=== PATIENT | male | born 1940 | race Caucasian/White ===

== ENCOUNTER 2019-06-26 23:26 | Observation (INO) | payer MEDICARE, OTHER ==
[~2019-06-26] VITALS: Ht 177.8 cm; Wt 76.1 kg
[2019-06-26] MEDS ORDERED: IV RINGERS SOLUTION,LACTATED 1,000 ML IV SCH (23:32)
--- NOTE | 2019-06-26 23:32 | PHYS DOC ---
Past History Past Medical History: Arthritis, Other Past Surgical History: Lumbar Laminectomy, Other Past Surgical History Back- Lumbar Sacral Adult General Chief Complaint Chief Complaint: ".. I ve fallen twice to day..hit my head both times.. my back pain is worse than usually... I just got released from [facility] 3 days ago...".." Now I am having chest pain... :" HPI HPI Patient is a 79 year old male who presents with above hx and complaints of falling. Pt has struck head on fall x 2 today. lst fall when he was closing up and got weak and hit back of his head. The second fall occurred when he decided to go for a drive in his Jeep,. He realized he did not have a rope to pull up his step stool. Pt uses a step stool to get into his Jeep. .. When he tried to get out of Jeep, he had increased weakness which caused him to fall and strike the Lt side of his forehead on the concrete. Pt. states falls were because of severe weakness. Pt. stated he had no report loss of consc iousness.with either fall. Did have some momentary dizzy feeling after striking his head. Pt. does have abrasions contusion to posterior scalp and abrasions contusion to left side forehead. Patient states his tetanus is up-to-date. Recently discharged from [facility] and longterm. Was at rehabilitation facility because of generalized limb weakness. Patient normally follows at [facility]. Patient has history of chronic back pain from surgery when he was in [place]. Patient relates his low back pain seems worse today. No recent travel outside of [place] and [place] area . Pt. reports no specific ill contacts. No history immunosuppression. Did get flu vaccination this season. On arrival emergency room pt. complaining of central chest pain that is nonradiating. Pain is reproducible on palpation sternal area. . Patient does have a history of hypertension and coronary artery disease. Review of Systems Review of Systems Constitutional: Denies fever or chills [] Eyes: Denies change in visual acuity, redness, or eye pain [] HENT: Denies nasal congestion or sore throat [] Complaints of head injury x 2 today. Respiratory: Denies cough or shortness of breath [] Cardiovascular: No additional information not addressed in HPI [] GI: Denies abdominal pain, nausea, vomiting, bloody stools or diarrhea [] : Denies dysuria or hematuria [] Musculoskeletal:Complaints of chronic low back and sacral pain, recent exacerbation Integument: Denies rash or skin lesions [] Neurologic: Denies headache, focal weakness or sensory changes [] Endocrine: Denies polyuria or polydipsia [] All other systems were reviewed and found to be within normal limits, except as documented in this note. Family History Family History On chronic respiratory to presentation Current Medications Current Medications See nursing for home meds Allergies Allergies No known drug allergies Physical Exam Physical Exam Constitutional: Moderate acute distress, non-toxic appearance. [] HENT: Normocephalic, patient's hematoma to posterior scalp, abrasion and hematoma to left anterior scalp, bilateral external ears normal, scar oropharynx moist, no oral exudates, nose normal. [] Eyes: PERRLA, EOMI, conjunctiva normal, no discharge. [] Neck: Normal range of motion, no tenderness, supple, no stridor. [] Cardiovascular: Tachycardia Heart rate regular rhythm, no murmur []PMI to the left Lungs & Thorax: Bilateral breath sounds equal apex with scattered wheezes on auscultation []. Sterna tenderness on palpation of sternum. Abdomen: Bowel sounds normal, soft, no tenderness, no masses, no pulsatile masses. [] Skin: Warm, dry, no erythema, no rash. [] Does have other areas of contusion elbows and knees. Back: Number sacral tenderness, no CVA tenderness. [] Old surgery scar left lumbar sacral area Extremities: No tenderness, no cyanosis, no clubbing, ROM intact, no edema. []Arthritic changes. Lower leg weakness. Neurologic: Alert and oriented X 3, moves extremities on request, does appear to have distal sensory, no gross focal deficits noted. [] Psychologic: Affect anxious, judgement normal, mood normal. [] EKG EKG EKG sinus rhythm at 89 bpm. Does have a leftward axis changes. Findings of acute STEMI with contralateral changes. Radiology/Procedures Radiology/Procedures [][address] [address] IMAGING REPORT Signed PATIENT: TARA PAREDESACCOUNT: [id number] : 1940 LOCATION: ER AGE: 79 SEX: M EXAM STATUS: REG ER ORD. PHYSICIAN: SUSAN WISDOM MD REASON: BACK PAIN, FREQUENT FALLS PROCEDURE: CT LUMBAR SPINE WO CONTRAST INDICATION: Trauma with pain in the lumbar spine and pelvis COMPARISON: None. TECHNIQUE: Axial CT images obtained through the lumbar spine and pelvis. One or more of the following individualized dose reduction techniques were utilized for this examination: 1. Automated exposure control; 2. Adjustment of the mA and/or kV according to patient size; 3. Use of iterative reconstruction technique. FINDINGS: Lumbar spine: No evidence of dislocation. No definite acute fracture line. Degenerative changes throughout the lumbar spine with osteophyte formation at the vertebral body endplates as well as disc protrusions and facet hypertrophy with multilevel central canal and neural foraminal stenosis. There is also some lucency seen at the vertebral body endplates including L5, L4 and L3. Could be related to degenerative changes and Schmorl's node formation. Calcific atherosclerosis. Pelvis: Calcific atherosclerosis. Degenerative changes the bilateral hips with osteophyte formation. Fat-containing left inguinal hernia. Urinary bladder somewhat distended at time of exam. Fat-containing umbilical hernia. No definite acute fracture or dislocation. IMPRESSION: * Degenerative changes of the lumbar spine with multilevel central canal and neural foraminal stenosis without a definite acute fracture. * No definite pelvic fracture. Electronically signed by: Jina Ovalle MD (06/27/2019 1:17 AM) [id number] DICTATED AND SIGNED BY: JINA OVALLE MD DATE: 06/27/[address] [place] [id number] IMAGING REPORT Signed PATIENT: TARA PAREDESACCOUNT: [id number] : 1940 LOCATION: ER AGE: 79 SEX: M EXAM STATUS: REG ER ORD. PHYSICIAN: SUSAN WISDOM MD REASON: head injury, FREQUENT FALLS PROCEDURE: CT HEAD AND CERVICAL SPINE WO INDICATION: Status post fall COMPARISON: None. TECHNIQUE: Axial CT images obtained through the head and cervical spine. One or more of the following individualized dose reduction techniques were utilized for this examination: 1. Automated exposure control; 2. Adjustment of the mA and/or kV according to patient size; 3. Use of iterative reconstruction technique. FINDINGS: Head: No midline shift. Scattered foci of low density of the white matter. No evidence of hydrocephalus. No definite acute intracranial hemorrhage. Portions of right mastoid air cells are missing which could be postoperative or secondary to auto mastoidectomy changes. Cervical spine: Degenerative changes are identified with osteophyte formation at the vertebral body endplates as well as uncovertebral and facet hypertrophy with multilevel central canal and neural foraminal stenosis. Partial fusion changes at multiple levels at the facet joints. No definite acute fracture. IMPRESSION: * No acute intracranial hemorrhage. * Degenerative changes the cervical spine without acute fracture or dislocation. Electronically signed by: Jina Ovalle MD (06/27/2019 1:05 AM) [id number] DICTATED AND SIGNED BY: JINA OVALLE MD DATE: 06/27/19 0105 CC: SUSAN WISDOM MD; PCP,NO ~ Course & Med Decision Making Course & Med Decision Making Pertinent Labs and Imaging studies reviewed. (See chart for details) Patient admitted to with consult to cardiology. Heart score: 5 Impression: 1. Chest Pain 2. Falling 3. Leukocytosis 11.1 4. Elevated D-dimer 0.64 5. Elevated CK 378 6. Head Injury 7. Spinal Stenosis 8. Weakness [] Dragon Disclaimer Dragon Disclaimer This electronic medical record was generated, in whole or in part, using a voice recognition dictation system. Departure Departure: Disposition: 01 HOME/RESIDENCE PRIOR TO ADM Condition: STABLE Dragon Disclaimer This chart was dictated in whole or in part using Voice Recognition software in a busy, high-work load, and often noisy Emergency Department environment. It may contain unintended and wholly unrecognized errors or omissions. SUSAN WISDOM MD Jun 26, 2019 23:32
[2019-06-26] MEDS ORDERED: MORPHINE SULFATE 10 MG/ML SYRINGE. SQ ONE (23:45)
[2019-06-27] VITALS (8 sets, daily range): BP systolic 108–151; BP diastolic 71–84
[2019-06-27 00:26] LABS: CALCIUM 9.8 mg/dL (8.5-10.1); CREATININE 0.8 mg/dL (0.7-1.3); GFR 93.5; POTASSIUM 4.8 mmol/L (3.5-5.1)
[2019-06-27 00:29] LABS: BASO % 0 % (0-3); EOS # 0.1 x10^3/uL (0.0-0.7); EOS % 1 % (0-3); HEMATOCRIT 45.2 % (39.0-53.0); HEMOGLOBIN 15.3 g/dL (13.0-17.5); LYMPH # 1.5 x10^3/uL (1.0-4.8); LYMPH % 13 % (24-48); MEAN CORPUSCULAR HEMOGLOBIN 31 pg (25-35); MEAN CORPUSCULAR HGB CONC 34 g/dL (31-37); MEAN CORPUSCULAR VOLUME 93 fL (79-100); MONO # 0.6 x10^3/uL (0.0-1.1); MONO % 6 % (0-9); NEUT # 8.9 x10^3uL (1.8-7.7); NEUT % 80 % (31-73); PLATELET COUNT 258 x10^3/uL (140-400); RED BLOOD COUNT 4.88 x10^6/uL (4.30-5.70); RED CELL DISTRIBUTION WIDTH 12.8 % (11.5-14.5); WHITE BLOOD COUNT 11.1 x10^3/uL (4.0-11.0)
[2019-06-27 00:38] LABS: ALBUMIN 4.1 g/dL (3.4-5.0); DIRECT BILIRUBIN 0.2 mg/dL (0.0-0.2); TOTAL BILIRUBIN 0.5 mg/dL (0.2-1.0); TOTAL PROTEIN 7.5 g/dL (6.4-8.2)
[2019-06-27] MEDS ORDERED: ONDANSETRON PF 4 MG/2 ML VIAL. IVP PRN (01:00)
--- NOTE | 2019-06-27 01:08 | RAD ---
INDICATION: Status post fall COMPARISON: None. TECHNIQUE: Axial CT images obtained through the head and cervical spine. One or more of the following individualized dose reduction techniques were utilized for this examination: 1. Automated exposure control; 2. Adjustment of the mA and/or kV according to patient size; 3. Use of iterative reconstruction technique. FINDINGS: Head: No midline shift. Scattered foci of low density of the white matter. No evidence of hydrocephalus. No definite acute intracranial hemorrhage. Portions of right mastoid air cells are missing which could be postoperative or secondary to auto mastoidectomy changes. Cervical spine: Degenerative changes are identified with osteophyte formation at the vertebral body endplates as well as uncovertebral and facet hypertrophy with multilevel central canal and neural foraminal stenosis. Partial fusion changes at multiple levels at the facet joints. No definite acute fracture. IMPRESSION: * No acute intracranial hemorrhage. * Degenerative changes the cervical spine without acute fracture or dislocation. Electronically signed by: Dorian Sen MD (06/27/2019 1:05 AM) [id number]
[2019-06-27 01:14] LABS: CLARITY,URINE CLEAR; COLOR,URINE STRAW
[2019-06-27 01:15] LABS: AMORPHOUS SEDIMENT,UR PRESENT /HPF; BACTERIA,URINE 0 /HPF (0-FEW); BILIRUBIN,URINE NEG (NEG); GLUCOSE,URINE NEG (NEG); NITRITE,URINE NEG (NEG); RBC,URINE 0 /HPF (0-2); SQUAMOUS EPITHELIAL CELL,UR OCC /LPF; UROBILINOGEN,URINE 0.2 mg/dL (0.2 mg/dL); WBC,URINE 0 /HPF (0-4)
[2019-06-27 01:19] LABS: BARBITURATES NEG (NEG); BENZODIAZEPINES NEG (NEG); CANNABINOIDS NEG (NEG); COCAINE NEG (NEG); METHADONE NEG (NEG); OPIATES NEG (NEG); PHENCYCLIDINE NEG (NEG)
--- NOTE | 2019-06-27 01:20 | RAD ---
INDICATION: Trauma with pain in the lumbar spine and pelvis COMPARISON: None. TECHNIQUE: Axial CT images obtained through the lumbar spine and pelvis. One or more of the following individualized dose reduction techniques were utilized for this examination: 1. Automated exposure control; 2. Adjustment of the mA and/or kV according to patient size; 3. Use of iterative reconstruction technique. FINDINGS: Lumbar spine: No evidence of dislocation. No definite acute fracture line. Degenerative changes throughout the lumbar spine with osteophyte formation at the vertebral body endplates as well as disc protrusions and facet hypertrophy with multilevel central canal and neural foraminal stenosis. There is also some lucency seen at the vertebral body endplates including L5, L4 and L3. Could be related to degenerative changes and Schmorl's node formation. Calcific atherosclerosis. Pelvis: Calcific atherosclerosis. Degenerative changes the bilateral hips with osteophyte formation. Fat-containing left inguinal hernia. Urinary bladder somewhat distended at time of exam. Fat-containing umbilical hernia. No definite acute fracture or dislocation. IMPRESSION: * Degenerative changes of the lumbar spine with multilevel central canal and neural foraminal stenosis without a definite acute fracture. * No definite pelvic fracture. Electronically signed by: Dorian Sen MD (06/27/2019 1:17 AM) [id number]
[2019-06-27 01:22] LABS: AMPHETAMINE/METHAMPHETAMINE NEG (NEG)
--- NOTE | 2019-06-27 01:51 | RAD ---
INDICATION: Status post fall COMPARISON: None. FINDINGS: Single view of chest obtained. Hypoexpanded exam with mild haziness at the left greater than right lung base and mild interstitial prominence. Degenerative changes the spine IMPRESSION: * Hypoexpanded exam with mild haziness at lung bases which could be from atelectasis unless the patient has symptoms of infiltrate. Electronically signed by: Dorian Sen MD (06/27/2019 1:48 AM) [id number]
[2019-06-27] MEDS ORDERED: FOLI20CA PO (03:06)
[2019-06-27] MEDS ORDERED: CARB1DRO20 OP (03:06)
[2019-06-27] MEDS ORDERED: METF500T16 PO ×2 (03:09)
[2019-06-27] MEDS ORDERED: MIRT30TA93 PO (03:11)
[2019-06-27] MEDS ORDERED: TAMS0.4C97 PO (03:12)
[2019-06-27] MEDS ORDERED: THIA500T PO (03:14)
[2019-06-27] MEDS ORDERED: ACET325T21 PO (03:14)
[2019-06-27] MEDS ORDERED: INSU100V8 SQ (03:20)
[2019-06-27] MEDS ORDERED: AMOX500C PO (03:20)
[2019-06-27] MEDS ORDERED: ATOR20TA58 PO (03:20)
[2019-06-27] MEDS ORDERED: INSU100C4 SQ (03:20)
[2019-06-27] MEDS ORDERED: ASPI-630 PO (03:20)
[2019-06-27 03:28] LABS: INFLUENZA A PATIENT NEGATIVE (NEGATIVE); INFLUENZA B PATIENT NEGATIVE (NEGATIVE)
--- NOTE | 2019-06-27 05:59 | EKG ---
[address] [address] Test Date: 2019-06-26 Test Time: 23:33:11 Pat Name: TARA PAREDES Department: Room: Gender: M Coat Agent: : 1940 Requested By: SUSAN WISDOM Order Number: [id number] Reading MD: Measurements Intervals [place] Rate: 89 P: 37 ME: 192 QRS: -8 QRSD: 88 T: 60 QT: 326 QTc: 398 Interpretive Statements SINUS RHYTHM LEFTWARD AXIS NO SPECIFIC ECG ABNORMALITIES RI6.01 No previous ECG available for comparison
[2019-06-27] MEDS ORDERED: ACETAMINOPHEN 325 MG TABLET PO PRN (07:45)
[2019-06-27] MEDS: ASPIRIN 81 MG TAB.CHEW PO SCH (09:52)
[2019-06-27] MEDS: metFORMIN 500 MG TABLET PO SCH (09:52)
[2019-06-27] MEDS: TAMSULOSIN 0.4 MG CAP.ER.24H. PO SCH (09:53)
[2019-06-27] MEDS ORDERED: LORazepam 0.5 MG TABLET PO PRN (10:30)
--- NOTE | 2019-06-27 10:47 | RAD ---
Bilateral lower extremity venous doppler ultrasound History: Pain, edema Comparison: None Findings: Multiple grayscale, color, and duplex spectral analysis sonographic images were acquired of the bilateral lower extremity veins to evaluate for the presence of DVT. There is normal phasicity. Normal compression, color-flow, and augmentation is demonstrated from the bilateral common femoral to the popliteal veins. There is normal color flow of the proximal greater saphenous and profunda femoris veins. Calf veins are not well visualized on this exam, segmental visualization of the peroneal veins. Impression: 1. There is no evidence of deep venous thrombosis from the bilateral common femoral to the popliteal veins. Electronically signed by: Tim Langford MD (06/27/2019 10:44 AM) [facility]
--- NOTE | 2019-06-27 12:22 | PN ---
DATE: 06/27/2019 SUBJECTIVE: The patient is sitting in the chair, comfortably in bed, in no apparent distress. He is very fidgety, seemed to be extremely anxious and continued to complain of back pain and generalized weakness. PHYSICAL EXAMINATION: GENERAL: When I examined him today, he looked well and was clearly in no apparent distress. No pallor, jaundice, cyanosis or thyromegaly. No jugular venous distention. No lower limb edema. VITAL SIGNS: His heart rate was 81, blood pressure was 105/58, temperature was 98.4, respiratory rate was 17 and oxygen saturation was 93%. HEAD, EYES, EARS, NOSE AND THROAT: Showed normocephalic, atraumatic. NECK: Supple. HEART: Normal first and second heart sounds. No gallop or murmur. CHEST: Clear to auscultation. No crepitation or rhonchi. ABDOMEN: Distended, soft, nontender. No guarding or rigidity. No organomegaly. All hernial orifice intact. Bowel sounds normal. NEUROLOGIC: He is hard of hearing, but otherwise all his cranial nerves are intact. He moves extremities without difficulty. He ambulates with a walker. LABORATORY DATA: He has no lab work done this morning, so we will add do 2 more sets of cardiac enzyme. We will consult the cardiology team and we will also get physical and occupational therapy to work with the patient and [facility] of the [facility] spine. MARIUM KAUR MD DR: RANDEE/jero JOB#: [id number] / [id number]
--- NOTE | 2019-06-27 12:44 | PDOC2 ---
CARDIAC CONSULT DATE OF CONSULT Date Of Consult DATE: 06/27/19 TIME: 12:40 REASON FOR CONSULT Reason for Consult Chest pain REFERRING PHYSICIAN Referring Physician Dr. Harkins SOURCE Source: Chart review, Patient HPI History of Present Illness The patient is a 79-year-old male who was admitted yesterday through the emergency room for episodes of reported falls with severe weakness and reported episodes of chest pain. Initial EKG showed a sinus rhythm with no acute ischemic changes. Troponin was normal at 0.017. Head CT scan showed no acute changes with no hemorrhages. Chest x-ray showed mild basilar haziness. The patient is a difficult historian but there is no clear history of coronary disease or heart f ailure. Today he is resting more comfortably. He denies chest pain. He reports improved back pain. PAST MEDICAL HISTORY Cardiovascular: HTN Psych: Anxiety FAMILY HISTORY Family History: Hypertension CURRENT MEDICATIONS Current Medications Current Medications Lactated Ringer's 1,000 ml @ 1,000 mls/hr Q1H IV Last administered on 06/27/19at 00:25; Start 06/26/19 at 23:32; Stop 06/27/19 at 00:49; Status DC Morphine Sulfate (Morphine 10mg Syringe) 10 mg 1X ONCE SQ Last administered on 06/27/19at 00:26; Start 06/26/19 at 23:45; Stop 06/27/19 at 00:50; Status DC Ondansetron HCl (Zofran) 4 mg PRN Q4HRS PRN IVP NAUSEA/VOMITING; Start 06/27/19 at 01:00; Stop 06/28/19 at 00:59 Acetaminophen (Tylenol) 650 mg PRN Q6HRS PRN PO mild pain or fever; Start 06/27/19 at 07:45 Aspirin (Children'S Aspirin) 81 mg DAILY PO Last administered on 06/27/19at 09:52; Start 06/27/19 at 09:00 Metformin HCl (Glucophage) 500 mg DAILYWSUP PO ; Start 06/27/19 at 17:00 Metformin HCl (Glucophage) 1,000 mg DAILY07 PO Last administered on 06/27/19at 09:52; Start 06/27/19 at 08:00 Tamsulosin HCl (Flomax) 0.8 mg DAILY PO Last administered on 06/27/19at 09:53; Start 06/27/19 at 09:00 Lorazepam (Ativan) 0.5 mg PRN 1X PRN PO ANXIETY / AGITATION; Start 06/27/19 at 10:30; Stop 06/27/19 at 12:00; Status DC Lorazepam (Ativan) 0.5 mg PRN Q6HRS PRN PO ANXIETY / AGITATION; Start 06/27/19 at 12:00 Acetaminophen/ Hydrocodone Bitart (Lortab 5/325) 1 tab PRN Q6HRS PRN PO MODERATE PAIN; Start 06/27/19 at 12:00 Active Scripts Active Reported Lantus (Insulin Glargine,Hum.rec.anlog) 100 Unit/1 Ml Vial 35 Unit SQ HS Novolog (Insulin Aspart) 100 Unit/1 Ml Cartridge 18 Unit SQ TIDAC Atorvastatin Calcium 20 Mg Tablet 0.5 Tab PO HS Aspirin 81 Mg Tab.chew 81 Mg PO DAILY Amoxicillin 500 Mg Capsule 1 Cap PO TID Acetaminophen 325 Mg Tablet 2 Tab PO PRN Q6HRS PRN 30 Days Thiamine Hcl 500 Mg Tablet 500 Mg PO DAILY08 Flomax (Tamsulosin Hcl) 0.4 Mg Cap.er.24h 2 Cap PO DAILY Mirtazapine 30 Mg Tab.rapdis 1 Tab PO QHS 30 Days Metformin Hcl 500 Mg Tablet 1 Tab PO DAILYWSUP Metformin Hcl 500 Mg Tablet 2 Tab PO DAILY07 Folic Acid 20 Mg Capsule 1 Mg PO DAILY Thera Tears (Carboxymethylcellulose Sodium) 1 Each Droperette 1 Each OP DAILY ALLERGIES Allergies: Coded Allergies: No Known Drug Allergies (Unverified , 06/27/19) ROS General: YES: Fatigue PSYCHOLOGICAL ROS: YES: Anxiety Cardiovascular: yes: Lt Headedness PHYSICAL EXAM General: No acute distress HEENT: Atraumatic Lungs: Clear to auscultation Heart: Regular rate Abdomen: Normal bowel sounds VITALS Vital Signs Vital Signs Date Time Temp Pulse Resp B/P (MAP) Pulse Ox O2 Delivery O2 Flow Rate FiO2 06/27/19 10:27 84 146/78 (100) 97 Room Air 06/27/19 10:25 97.6 06/27/19 05:11 24 LABS LABS Laboratory Tests Test 06/26/19 23:59 06/27/19 07:06 06/27/19 11:19 06/27/19 11:55 White Blood Count 11.1 x10^3/uL (4.0-11.0) Red Blood Count 4.88 x10^6/uL (4.30-5.70) Hemoglobin 15.3 g/dL (13.0-17.5) Hematocrit 45.2 % (39.0-53.0) Mean Corpuscular Volume 93 fL (79-100) Mean Corpuscular Hemoglobin 31 pg (25-35) Mean Corpuscular Hemoglobin Concent 34 g/dL (31-37) Red Cell Distribution Width 12.8 % (11.5-14.5) Platelet Count 258 x10^3/uL (140-400) Neutrophils (%) (Auto) 80 % (31-73) Lymphocytes (%) (Auto) 13 % (24-48) Monocytes (%) (Auto) 6 % (0-9) Eosinophils (%) (Auto) 1 % (0-3) Basophils (%) (Auto) 0 % (0-3) Neutrophils # (Auto) 8.9 x10^3uL (1.8-7.7) Lymphocytes # (Auto) 1.5 x10^3/uL (1.0-4.8) Monocytes # (Auto) 0.6 x10^3/uL (0.0-1.1) Eosinophils # (Auto) 0.1 x10^3/uL (0.0-0.7) Basophils # (Auto) 0.0 x10^3/uL (0.0-0.2) Prothrombin Time 10.5 SEC (9.4-11.4) Prothromb Time International Ratio 1.0 (0.9-1.1) Activated Partial Thromboplast Time 24 SEC (23-33) D-Dimer (Janneth) 0.64 mg/L (0.00-0.50) Urine Collection Type Unknown Urine Color Straw Urine Clarity Clear Urine pH 7.0 Urine Specific [place] 1.020 Urine Protein Neg (NEG-TRACE) Urine Glucose (UA) Neg mg/dL (NEG) Urine Ketones (Stick) Trace mg/dL (NEG) Urine Blood Neg (NEG) Urine Nitrite Neg (NEG) Urine Bilirubin Neg (NEG) Urine Urobilinogen Dipstick 0.2 mg/dL (0.2 mg/dL) Urine Leukocyte Esterase Neg (NEG) Urine RBC 0 /HPF (0-2) Urine WBC 0 /HPF (0-4) Urine Squamous Epithelial Cells Occ /LPF Urine Amorphous Sediment Present /HPF Urine Bacteria 0 /HPF (0-FEW) Sodium Level 136 mmol/L (136-145) Potassium Level 4.8 mmol/L (3.5-5.1) Chloride Level 98 mmol/L (98-107) Carbon Dioxide Level 29 mmol/L (21-32) Anion Gap 9 (6-14) Blood Urea Nitrogen 9 mg/dL (8-26) Creatinine 0.8 mg/dL (0.7-1.3) Estimated GFR (Cockcroft-Gault) 93.5 Glucose Level 122 mg/dL (70-99) Calcium Level 9.8 mg/dL (8.5-10.1) Magnesium Level 2.0 mg/dL (1.8-2.4) Total Bilirubin 0.5 mg/dL (0.2-1.0) Direct Bilirubin 0.2 mg/dL (0.0-0.2) Aspartate Amino Transf (AST/SGOT) 21 U/L (15-37) Alanine Aminotransferase (ALT/SGPT) 26 U/L (16-63) Alkaline Phosphatase 79 U/L (46-116) Creatine Kinase 378 U/L (39-308) Troponin I Quantitative 0.017 ng/mL (0-0.055) PR-Pfs-L-Type Natriuretic Peptide 38 pg/mL (0-449) Total Protein 7.5 g/dL (6.4-8.2) Albumin 4.1 g/dL (3.4-5.0) Lipase 63 U/L (73-393) Thyroid Stimulating Hormone (TSH) 1.422 uIU/mL (0.358-3.740) Urine Opiates Screen Neg (NEG) Urine Methadone Screen Neg (NEG) Urine Barbiturates Neg (NEG) Urine Phencyclidine Screen Neg (NEG) Urine Amphetamine/Methamphetamine Neg (NEG) Urine Benzodiazepines Screen Neg (NEG) Urine Cocaine Screen Neg (NEG) Urine Cannabinoids Screen Neg (NEG) Urine Ethyl Alcohol Neg (NEG) Influenza Type A (Rapid) Negative (NEGATIVE) Influenza Type B (Rapid) Negative (NEGATIVE) Glucose (Fingerstick) 97 mg/dL (70-99) 103 mg/dL (70-99) C-Reactive Protein 10.1 mg/L (0-3.3) IMAGES IMAGES CT scan of the head shows no acute changes. Chest x-ray shows mild basilar haziness. EKG EKG EKG shows a sinus rhythm with no acute ischemic changes. ASSESSMENT/PLAN Assessment/Plan 1. Chest pain. Pain has resolved. Initial troponins are normal. We'll trend. Patient is more comfortable today. His chief concern is his generalized weakness. We'll continue present medications and obtain old records. 2. Reported episodes of falls. CT head scan shows no acute changes. Rhythm is stable and we'll continue to monitor. 3. Hypertension. Blood pressure is under reasonable control. Thank you for allowing us to participate in the care of your patient. ISSAC MEYER MD Jun 27, 2019 12:44
--- NOTE | 2019-06-27 12:55 | HP ---
ADMIT DATE: 06/27/2019 HISTORY OF PRESENT ILLNESS: The patient is a 79-year-old male patient who was brought to the Emergency Room complaining of having fallen twice a day and has hit his head, both times. He also has severe back pain that is worse than usual. He apparently was released from [facility] only about 3 days ago prior to admission. He also complained of chest pain, it is mostly retrosternal that started when he arrived here to the Emergency Room, the first fall when he was closing up and got weak and hit the back of his head, second fall occurred when he decided to go for a drive and his jeep he realized did not have a rope to pull up his step stool. He used the step stool to get into his jeep and tried to get out of the jeep, he had increased weakness, which caused him to fall and strike his left side of his forehead on that concrete. The patient stated that he has fallen because of severe weakness, but did not report any loss of consciousness with either fall, did complain of momentary dizzy feeling after striking his head. He did have abrasions and contusion to posterior scalp and abrasions and contusion to the left side forehead. He stated his tinnitus status is up-to-date. He was only recently discharged from [facility] for the [facility]. He was there of almost 8-9 weeks because of generalized weakness. He normally follows at the [place]. He was extensively evaluated in the Emergency Room, had lab work including cardiac enzyme as well as multiple imaging studies and was admitted for further evaluation and treatment. PAST MEDICAL HISTORY: Significant for: 1. Type 2 diabetes mellitus. 2. Benign prostatic hypertrophy. 3. Obstructive sleep apnea, hyperlipidemia and generalized osteoarthritis. He has also posttraumatic stress disorder. PAST SURGICAL HISTORY: Significant for bilateral cataract extraction, tonsillectomy, appendectomy, left inguinal hernia repair. He has back surgery in 1965, multiple wounds to his left and right hand, left shoulder. He has wounded in the war about 9 times. He underwent esophagogastroduodenoscopy as well as colonoscopy. ALLERGIES: He has no known drug allergies. MEDICATIONS: He is currently on following medications: He is currently on tamsulosin 0.4 mg, he takes 2 capsules daily; atorvastatin 10 mg at bedtime; aspirin 81 mg once a day; Tylenol 650 mg every 6 hours; mirtazapine 30 mg at bedtime; carboxymethylcellulose for artificial tears 1 drop to both eyes daily; metformin 500 mg, he takes 2 tablets daily; metformin 500 mg 1 tablet with supper. He is on NovoLog 18 units before meals and Lantus 35 units at bedtime. He is on folic acid 1 mg once a day and thiamine 500 mg daily. FAMILY HISTORY: He has one brother who is still alive, older and 1 sister, still alive and younger, 3 brothers and older brothers are , one with a CVA and 2 with myocardial infarction. His father at the age of 62 because of myocardial infarction. Mother at the age of 94 because of CVA. SOCIAL HISTORY: He is ; however, he does not live with his and apparently has been since 2011. He has 1 daughter that he does not have any relationship with and 1 son that he lives with. He quit smoking in 1965. Quit drinking alcohol about 5-6 weeks ago. Does not use any drugs. REVIEW OF SYSTEMS: The patient has bilateral cataract extraction, but denied any glaucoma or macular degeneration. He has bilateral sensorineural deafness and he has bilateral hearing aids. Denied any nosebleeds, stuffy nose or postnasal drip. Denied any sore throat, sore tongue, toothache, hoarseness of voice. Did complain of difficulty swallowing solids. Denied any nausea, vomiting, diarrhea or constipation. Denied any hematemesis, melena, hematochezia. Denied any dysuria, frequency or hematuria. He did complain of nocturia about 3-4 times. Did complain of chest pain that started when he arrived to the Emergency Room that is mostly retrosternal, not associated with any nausea, vomiting, no diaphoresis and no radiation. PHYSICAL EXAMINATION: GENERAL: On arrival to the Emergency Room, he looked well and was clearly in no apparent respiratory distress. He was somewhat pale, but no jaundice or cyanosis. No lymphadenopathy, no thyromegaly. No jugular venous distention. No lower limb edema. VITAL SIGNS: His heart rate was 75, blood pressure was 143/84, temperature was 98.4, respiratory rate 20, and oxygen saturation was 100% on room air. HEAD, EYES, EARS, NOSE AND THROAT: Showed normocephalic, atraumatic. NECK: Supple. CARDIAC: Normal first and second heart sounds. No gallop or murmur. CHEST: Clear to auscultation. No crepitation or rhonchi. ABDOMEN: Distended, soft, nontender. No guarding or rigidity. No organomegaly. All hernial orifice intact. Bowel sounds normal. NEUROLOGIC: He was awake, alert, responding appropriately. All his cranial nerves are intact. EXTREMITIES: He moves extremities without difficulty, apparently ambulates with a walker. LABORATORY DATA: His lab work on arrival showed a white cell count of 11,000, hemoglobin 15, hematocrit 45, MCV 93, and platelet count of 258,000 with normal manual differential. His chemistry showed a serum sodium of 136, potassium 4.8, chloride 98, bicarbonate 29, anion gap of 9, BUN 9, creatinine 0.8, estimated GFR was 93 mL per minute, his glucose 122, calcium was 9.8, magnesium 2. Total bilirubin, AST, ALT, alkaline phosphatase were normal. CK was 378. Troponin was 0.017. His beta natriuretic peptide was 38. Total protein was 7.5, albumin was 4.1. His lipase was 63 and TSH was 1.422. His prothrombin time was 10.5, INR 1, aPTT was 24 and D-dimer was 0.64. Urinalysis was essentially unremarkable. Toxic screen was essentially negative. His influenza A and B were negative. He did have a CT scan of the pelvis and showed that there is no evidence of dislocation or fracture, degenerative changes throughout the lumbar spine with osteophyte formation at the vertebral body endplates as well as disk protrusion and facet hypertrophy with multilevel central canal and neural foraminal stenosis. There is also some lucency seen at the vertebral body endplates including L4, L5, L3 could be related to degenerative changes with Schmorl's node formation, calcific atherosclerosis. CT scan of the pelvis showed calcific atherosclerosis, degenerative changes of bilateral hips with osteophyte formation, fat containing left inguinal hernia. Urinary bladder is somewhat distended at the time of the exam, has also fat containing umbilical hernia. No definite acute fracture or dislocation. CT scan of the head and cervical spine showed that the patient has no definite shift. Scattered foci of lower density of the white matter, no evidence of hydrocephalus. No definite acute intracranial hemorrhage, portions of the right mastoid air cells are missing, which could be postoperative or secondary to mastoidectomy changes. The cervical spine showed degenerative changes of cervical spine without any fracture or dislocation. His chest x-ray showed that he has hyperexpanded exam with mild haziness of the left greater than right lung base and mild interstitial prominence, degenerative changes of the spine. The venous Doppler ultrasound of both lower extremities showed no evidence of deep vein thrombosis from the bilateral common femoral to the popliteal veins. ASSESSMENT AND PLAN: The patient was admitted and was continued on his medication. We will do 2 more sets of cardiac enzymes. He apparently had had an MRI done at [facility] about 2 weeks ago. We will contact the [facility] to see if we can get a copy of his MRI report of his lumbar spine and we will consult the perforator loader to evaluate him and we will decide further management accordingly. MARIUM KAUR MD DR: RANDEE/jero JOB#: [id number] / [id number]
[2019-06-27] MEDS: HYDROcodone/APAP 5/325MG 1 TAB TABLET PO PRN ×2 (14:21→20:53)
[2019-06-27] MEDS: LORazepam 0.5 MG TABLET PO PRN (14:21)
[2019-06-27] MEDS ORDERED: metFORMIN 500 MG TABLET PO SCH (17:00)
--- NOTE | 2019-06-27 19:03 | CONS ---
DATE OF CONSULTATION: 06/27/2019 NEUROLOGY CONSULTATION REFERRING PHYSICIAN: Dr. Harkins. REASON FOR CONSULTATION: Low back pain, weakness of the lower extremities, frequent falls. HISTORY OF PRESENT ILLNESS: This is a 79-year-old right-handed male who has had longstanding history of localized lower back pain associated with numbness and paresthesia of the feet and marked weakness of the lower extremities. The patient stated he had 2 falls yesterday and he related that to the weakness of the lower extremities. [facility] and he got physical therapy for 2 weeks. He stated he was stronger with physical therapy, but it was stopped recently. He was told to follow with physical therapy at [facility]. The patient also complains of intermittent substernal chest pain, prior to the admission, but he denies chest pain today. He denies headaches, visual disturbances, nausea, vomiting, bowel or bladder dysfunctions. The patient did not lose his consciousness when he landed on his left side. He did have closed head injuries on concrete. Because of chest pain, he had cardiac workup with cardiac enzymes and EKG. PAST MEDICAL HISTORY: Significant for chronic lower back pain, diabetes mellitus type 2, obstructive sleep apnea, hyperlipidemia, osteoarthritis, posttraumatic stress disorders and benign prostatic hypertrophy. PAST SURGICAL HISTORY: Significant for lumbosacral spine surgery in 1965, bilateral cataract extraction, tonsillectomy, appendectomy, left inguinal hernia repair. ALLERGIES: No known drug allergies. FAMILY HISTORY: Brother had stroke and myocardial infarction. His father at age of 62 because of myocardial infarction. His mother at the age of 94 of stroke. CURRENT HOME MEDICATIONS: Flomax 0.4 mg 2 capsules daily, Lipitor 10 mg at bedtime, aspirin 81 mg daily, mirtazapine 30 mg at bedtime, Eye drops, metformin 500 mg 2 tablets daily, insulin NovoLog 18 units before meals, Lantus 35 units nightly, folic acid 1 mg daily, thiamine 500 mg daily. SOCIAL HISTORY: The patient is , but he has been from his since 2011. He has 2 children. He denies smoking, but he quit alcohol drinking 5 weeks ago. He denies illegal drug use. REVIEW OF SYSTEMS: A 10-point review of system was performed as mentioned above in history of present illness, otherwise unremarkable. The patient has been using a walker occasionally for ambulation. PHYSICAL EXAMINATION: GENERAL: A well-developed, well-nourished male, not in acute distress. He weighs 75 kilos. VITAL SIGNS: Blood pressure 110/71, respiratory rate 18, pulse is 83, temperature 97.4, oxygen saturation 94% on room air. HEENT: Normocephalic, atraumatic, otherwise unremarkable. NECK: Supple. Negative for carotid bruit, lymphadenopathy or thyromegaly. LUNGS: Clear to A and P. CARDIOVASCULAR: Regular rate and rhythm, normal S1, S2. There is no S3, S4 or murmur. ABDOMEN: Soft. Bowel sounds positive. EXTREMITIES: Negative for cyanosis, clubbing or edema. NEUROLOGICAL EXAM: 1. MENTAL STATUS: The patient is alert and oriented x 3. The speech is fluent. There is no language dysfunction. Memory, judgment, and abstracting thinking are normal. The patient denies hallucination or delusion. 2. CRANIAL NERVES: Visual rosen are full. The pupils are reactive to light and accommodation. The extraocular movements are intact. There is no nystagmus. There is no facial motor or sensory deficits. Hearing is slightly diminished bilaterally. The palate is elevated symmetrically. Sternocleidomastoid muscles are powerful bilaterally. The patient shrugs his shoulders symmetrically, protrudes his tongue in the midline without fasciculation or atrophy. 3. MOTOR EXAMINATION: No focal muscle bulk wasting. The tone is normal. The strength is 4/5 in the proximal lower extremities and 5/5 distally. The strength in the upper extremities is 5/5 throughout. Tinel's and Phalen's signs were present over the median nerve at the wrist bilaterally. Sensory examination revealed diminished pinprick and light touch senses in stocking distributions. Romberg sign is positive. Deep tendon reflexes were symmetric and active with absent Achilles responses bilaterally. Gait: The stance is steady, but the patient uses a walker for ambulation. LABORATORY DATA: CBC revealed white blood cells of 11.1 thousand, hemoglobin 15.3, hematocrit 45.2, and platelet count 258,000. Chemistry revealed sodium of 136, potassium 4.8, chloride 98, CO2 of 29, BUN 9, creatinine 0.8, glucose 152, calcium 9.8, and creatine kinase is high at 378. Troponin level is 0.227. Urinalysis is negative for urinary tract infections and urine drug screen is negative. DIAGNOSTIC DATA: CT of the lumbar spine and pelvis revealed degenerative changes of the lumbar spine at multiple levels with central canal and neuroforaminal stenosis without acute fracture. Bilateral lower extremities venous Doppler study revealed no evidence of DVT. CT of the head revealed no evidence of acute intracranial process. CT of the cervical spine revealed evidence of degenerative disk disease with spinal canal stenosis at multiple levels and chest x-ray revealed possible atelectasis, but no infiltrate. IMPRESSION: 1. Chronic lower back pain with recent fall secondary to weakness of the lower extremities in a patient has had longstanding history of lower back pain secondary to degenerative disk disease at multiple levels. 2. Numbness and paresthesia of the lower and upper extremities, rule out radiculopathy versus peripheral neuropathy secondary to diabetes mellitus. 3. Multiple medical problems include diabetes mellitus, benign prostatic hypertrophy, obstructive sleep apnea, hyperlipidemia and generalized osteoarthritis. RECOMMENDATIONS: 1. Continue with current management initiated by Dr. Harkins. 2. The patient needs EMG/NCS of the upper and lower extremities to rule out entrapment neuropathy, peripheral neuropathy versus lumbosacral or cervical radiculopathy. 3. The patient may benefit from gabapentin or Lyrica for neuropathic pain. 4. We will obtain lumbosacral spine MRI from [facility] tomorrow morning. 5. Continue with physical therapy as tolerated. M Viktor SCOTT MD DR: ISAAC/jero JOB#: [id number] / [id number]
[2019-06-27] MEDS ORDERED: MIRTAZAPINE ODT 30 MG TAB.RAPDIS. PO SCH (21:00)
[2019-06-27] MEDS ORDERED: ATORVASTATIN CALCIUM 20 MG TABLET PO SCH (21:00)
[2019-06-28] MEDS: LORazepam 0.5 MG TABLET PO PRN (02:00)
[2019-06-28] MEDS: HYDROcodone/APAP 5/325MG 1 TAB TABLET PO PRN ×2 (04:18→07:49)
[2019-06-28 05:19] VITALS: BP 148/85
[2019-06-28 06:32] LABS: BASO % 1 % (0-3); EOS # 0.3 x10^3/uL (0.0-0.7); EOS % 4 % (0-3); HEMATOCRIT 44.6 % (39.0-53.0); LYMPH # 2.5 x10^3/uL (1.0-4.8); LYMPH % 31 % (24-48); MEAN CORPUSCULAR HEMOGLOBIN 31 pg (25-35); MEAN CORPUSCULAR HGB CONC 34 g/dL (31-37); MEAN CORPUSCULAR VOLUME 93 fL (79-100); MONO # 0.5 x10^3/uL (0.0-1.1); MONO % 7 % (0-9); NEUT # 4.6 x10^3uL (1.8-7.7); NEUT % 58 % (31-73); PLATELET COUNT 232 x10^3/uL (140-400); RED BLOOD COUNT 4.79 x10^6/uL (4.30-5.70); RED CELL DISTRIBUTION WIDTH 13.2 % (11.5-14.5)
[2019-06-28 06:44] LABS: ALBUMIN 3.5 g/dL (3.4-5.0); ALBUMIN/GLOBULIN RATIO 1.1 (1.0-1.7); CALCIUM 9.1 mg/dL (8.5-10.1); CREATININE 0.7 mg/dL (0.7-1.3); GFR 109.1; POTASSIUM 3.9 mmol/L (3.5-5.1); TOTAL BILIRUBIN 0.5 mg/dL (0.2-1.0); TOTAL PROTEIN 6.7 g/dL (6.4-8.2)
[2019-06-28] MEDS: metFORMIN 500 MG TABLET PO SCH (07:47)
[2019-06-28] MEDS: ASPIRIN 81 MG TAB.CHEW PO SCH (07:48)
[2019-06-28] MEDS: TAMSULOSIN 0.4 MG CAP.ER.24H. PO SCH (07:48)
--- NOTE | 2019-06-28 08:06 | PDOC ---
CARDIO Progress Notes Date & Time Date of Service DATE: 06/28/19 TIME: 08:03 Time of Evaluation 08:03 Subjective Notes No CP, palpitations, dizziness, diaphoresis, or SOA. C/o low back pain, which is chronic. Vitals Vitals Vital Signs Date Time Temp Pulse Resp B/P (MAP) Pulse Ox O2 Delivery O2 Flow Rate FiO2 06/28/19 07:49 18 Room Air 06/28/19 05:19 97.7 88 148/85 (106) 96 Weight Weight [ ] Input and Output I.O. Intake and Output 06/28/19 07:00 Intake Total 1020 ml Output Total 550 ml Balance 470 ml Intake Oral 1020 ml Output Urine Total 550 ml # Voids 5 Laboratory Labs Laboratory Tests Test 06/26/19 23:59 06/27/19 07:06 06/27/19 11:19 06/27/19 11:55 White Blood Count 11.1 x10^3/uL (4.0-11.0) Red Blood Count 4.88 x10^6/uL (4.30-5.70) Hemoglobin 15.3 g/dL (13.0-17.5) Hematocrit 45.2 % (39.0-53.0) Mean Corpuscular Volume 93 fL (79-100) Mean Corpuscular Hemoglobin 31 pg (25-35) Mean Corpuscular Hemoglobin Concent 34 g/dL (31-37) Red Cell Distribution Width 12.8 % (11.5-14.5) Platelet Count 258 x10^3/uL (140-400) Neutrophils (%) (Auto) 80 % (31-73) Lymphocytes (%) (Auto) 13 % (24-48) Monocytes (%) (Auto) 6 % (0-9) Eosinophils (%) (Auto) 1 % (0-3) Basophils (%) (Auto) 0 % (0-3) Neutrophils # (Auto) 8.9 x10^3uL (1.8-7.7) Lymphocytes # (Auto) 1.5 x10^3/uL (1.0-4.8) Monocytes # (Auto) 0.6 x10^3/uL (0.0-1.1) Eosinophils # (Auto) 0.1 x10^3/uL (0.0-0.7) Basophils # (Auto) 0.0 x10^3/uL (0.0-0.2) Prothrombin Time 10.5 SEC (9.4-11.4) Prothromb Time International Ratio 1.0 (0.9-1.1) Activated Partial Thromboplast Time 24 SEC (23-33) D-Dimer (Janneth) 0.64 mg/L (0.00-0.50) Urine Collection Type Unknown Urine Color Straw Urine Clarity Clear Urine pH 7.0 Urine Specific [place] 1.020 Urine Protein Neg (NEG-TRACE) Urine Glucose (UA) Neg mg/dL (NEG) Urine Ketones (Stick) Trace mg/dL (NEG) Urine Blood Neg (NEG) Urine Nitrite Neg (NEG) Urine Bilirubin Neg (NEG) Urine Urobilinogen Dipstick 0.2 mg/dL (0.2 mg/dL) Urine Leukocyte Esterase Neg (NEG) Urine RBC 0 /HPF (0-2) Urine WBC 0 /HPF (0-4) Urine Squamous Epithelial Cells Occ /LPF Urine Amorphous Sediment Present /HPF Urine Bacteria 0 /HPF (0-FEW) Sodium Level 136 mmol/L (136-145) Potassium Level 4.8 mmol/L (3.5-5.1) Chloride Level 98 mmol/L (98-107) Carbon Dioxide Level 29 mmol/L (21-32) Anion Gap 9 (6-14) Blood Urea Nitrogen 9 mg/dL (8-26) Creatinine 0.8 mg/dL (0.7-1.3) Estimated GFR (Cockcroft-Gault) 93.5 Glucose Level 122 mg/dL (70-99) Calcium Level 9.8 mg/dL (8.5-10.1) Magnesium Level 2.0 mg/dL (1.8-2.4) Total Bilirubin 0.5 mg/dL (0.2-1.0) Direct Bilirubin 0.2 mg/dL (0.0-0.2) Aspartate Amino Transf (AST/SGOT) 21 U/L (15-37) Alanine Aminotransferase (ALT/SGPT) 26 U/L (16-63) Alkaline Phosphatase 79 U/L (46-116) Creatine Kinase 378 U/L (39-308) Troponin I Quantitative 0.017 ng/mL (0-0.055) 0.227 ng/mL (0-0.055) OL-Chh-B-Type Natriuretic Peptide 38 pg/mL (0-449) Total Protein 7.5 g/dL (6.4-8.2) Albumin 4.1 g/dL (3.4-5.0) Lipase 63 U/L (73-393) Thyroid Stimulating Hormone (TSH) 1.422 uIU/mL (0.358-3.740) Urine Opiates Screen Neg (NEG) Urine Methadone Screen Neg (NEG) Urine Barbiturates Neg (NEG) Urine Phencyclidine Screen Neg (NEG) Urine Amphetamine/Methamphetamine Neg (NEG) Urine Benzodiazepines Screen Neg (NEG) Urine Cocaine Screen Neg (NEG) Urine Cannabinoids Screen Neg (NEG) Urine Ethyl Alcohol Neg (NEG) Influenza Type A (Rapid) Negative (NEGATIVE) Influenza Type B (Rapid) Negative (NEGATIVE) Glucose (Fingerstick) 97 mg/dL (70-99) 103 mg/dL (70-99) C-Reactive Protein 10.1 mg/L (0-3.3) Test 06/27/19 16:15 06/27/19 21:22 06/28/19 06:10 06/28/19 07:13 Erythrocyte Sedimentation Rate 29 (0-15) Troponin I Quantitative 0.141 ng/mL (0-0.055) Glucose (Fingerstick) 131 mg/dL (70-99) 106 mg/dL (70-99) White Blood Count 8.0 x10^3/uL (4.0-11.0) Red Blood Count 4.79 x10^6/uL (4.30-5.70) Hemoglobin 15.0 g/dL (13.0-17.5) Hematocrit 44.6 % (39.0-53.0) Mean Corpuscular Volume 93 fL (79-100) Mean Corpuscular Hemoglobin 31 pg (25-35) Mean Corpuscular Hemoglobin Concent 34 g/dL (31-37) Red Cell Distribution Width 13.2 % (11.5-14.5) Platelet Count 232 x10^3/uL (140-400) Neutrophils (%) (Auto) 58 % (31-73) Lymphocytes (%) (Auto) 31 % (24-48) Monocytes (%) (Auto) 7 % (0-9) Eosinophils (%) (Auto) 4 % (0-3) Basophils (%) (Auto) 1 % (0-3) Neutrophils # (Auto) 4.6 x10^3uL (1.8-7.7) Lymphocytes # (Auto) 2.5 x10^3/uL (1.0-4.8) Monocytes # (Auto) 0.5 x10^3/uL (0.0-1.1) Eosinophils # (Auto) 0.3 x10^3/uL (0.0-0.7) Basophils # (Auto) 0.0 x10^3/uL (0.0-0.2) Sodium Level 139 mmol/L (136-145) Potassium Level 3.9 mmol/L (3.5-5.1) Chloride Level 102 mmol/L (98-107) Carbon Dioxide Level 29 mmol/L (21-32) Anion Gap 8 (6-14) Blood Urea Nitrogen 10 mg/dL (8-26) Creatinine 0.7 mg/dL (0.7-1.3) Estimated GFR (Cockcroft-Gault) 109.1 BUN/Creatinine Ratio 14 (6-20) Glucose Level 106 mg/dL (70-99) Calcium Level 9.1 mg/dL (8.5-10.1) Total Bilirubin 0.5 mg/dL (0.2-1.0) Aspartate Amino Transf (AST/SGOT) 19 U/L (15-37) Alanine Aminotransferase (ALT/SGPT) 26 U/L (16-63) Alkaline Phosphatase 70 U/L (46-116) Total Protein 6.7 g/dL (6.4-8.2) Albumin 3.5 g/dL (3.4-5.0) Albumin/Globulin Ratio 1.1 (1.0-1.7) Physical Exams HEENT: Neck Supple W Full Motion Chest: Symmetric Lungs: Clear to Auscultation Heart: S1S2, RRR Abdomen: Soft N/T Extremities: No Edema Neurology: alert, oriented, follow commands Assessment Assessment 1. Chest pain, mixed features. 2. Mild troponin elevation; Peak 0.2 3. Weakness, falls. CT head without acute changes 4. Hypertension; controlled 5. Hyperlipidemia; statin 6. Diabetes, II 7. Chronic lower back pain Recommendations Echo to assess LV systolic function Lipids Continue ASA, statin Further ischemic workup based up risk factors, possibly as an outpatient Further pending above. GENE MCBRIDE APRN Jun 28, 2019 08:06
[2019-06-28 10:45] VITALS: BP 119/76
--- NOTE | 2019-06-28 11:28 | PN ---
DATE: REFERRING PHYSICIAN: Dr. Harkins. SUBJECTIVE: The patient denies any new medical neurological complaints. He continues to have weakness of the lower extremities, numbness and paresthesia of the feet and hands. MRI of the cervical spine performed at [facility] revealed moderate to severe degenerative disk disease and spinal stenosis of the lumbar spine at multiple levels and also showed multilevel degenerative disk disease of the cervical spine. OBJECTIVE: GENERAL: Well-developed, well-nourished male, not in acute distress. VITAL SIGNS: Afebrile, blood pressure 119/76, respiratory rate 18, pulse is 75, oxygen saturation 94% on room air. HEENT: Normocephalic, atraumatic, otherwise unremarkable. NECK: Supple. Negative for carotid bruit, lymphadenopathy or thyromegaly. LUNGS: Clear to A and P. CARDIOVASCULAR: Regular rate and rhythm, normal S1, S2. ABDOMEN: Soft. Bowel sounds positive. EXTREMITIES: Negative for cyanosis, clubbing or edema. NEUROLOGICAL EXAM: Mental Status: The patient has normal mental status and intact cranial nerves except for mild bilateral hearing loss. Motor examination; weakness of the proximal lower extremities at 4/5, otherwise unremarkable. Sensory examination revealed diminished pinprick and light touch senses in patchy distributions as well as in stocking and glove distributions bilaterally. Deep tendon reflexes were asymmetric with hypoactive and absent Achilles responses bilaterally. Gait: The patient's stance is steady; however, the Romberg sign is negative. The patient uses a walker for ambulation. RECOMMENDATIONS: 1. Continue with current management initiated by Dr. Harkins. 2. Continue with previous neurological recommendations including EMG/NCS of the upper and lower extremities. Follow up with Dr. Scott after 2 weeks from discharge. M Viktor SCOTT MD DR: ISAAC/jero JOB#: [id number] / [id number]
[2019-06-28] MEDS ORDERED: HYDR-2759 PO (11:30)
--- NOTE | 2019-06-28 12:36 | DS ---
DATE OF DISCHARGE: 06/28/2019 The patient is a 79-year-old male patient who was admitted for recurrent falls and generalized weakness. He apparently has had an MRI done at the [facility], showed severe degenerative changes in both the cervical and lumbar spine, although there is no evidence of cervical myelopathy. He fell and has some superficial abrasions on his left forehead and also the outer aspect of the left knee. He was evaluated by the physical therapist and apparently has been able to ambulate with a walker without difficulty. He was seen by the drilling and production superintendent as well as neurologist. The drilling and production superintendent recommended an echocardiogram to assess left ventricular systolic function as well as lipid panel and continue aspirin, statin and recommended that further with ischemic workup can be done as an outpatient. PHYSICAL EXAMINATION: GENERAL: When I examined him this afternoon, he looked well and was clearly in no apparent distress slightly. There is no pallor, jaundice, cyanosis or thyromegaly. No jugular venous distension. No limb edema. VITAL SIGNS: His heart rate was 75, blood pressure was 119/76, temperature was 97.5, respiratory rate was 18 and oxygen saturation was 94%. HEAD, EYES, EARS, NOSE AND THROAT: Normocephalic, atraumatic. NECK: Supple. HEART: Showed normal first and second heart sounds. No gallop or murmur. CHEST: Clear to auscultation. No crepitation or rhonchi. ABDOMEN: Distended, soft, nontender. NEUROLOGIC: He was awake, alert, responding appropriately. All cranial nerves are intact. He moves extremities without difficulty. LABORATORY DATA: Showed that his troponin has risen up to 0.227. His chemistry this morning showed a serum sodium 139, potassium 3.9, chloride 102, bicarbonate 29, anion gap of 8, BUN 10, creatinine 0.7, estimated GFR was 109 mL per minute, his glucose 106, calcium was 8.1. Total bilirubin, AST, ALT, alkaline phosphatase were normal. Total protein 6.7, albumin was 3.5. His white cell count was 8000, hemoglobin 15, hematocrit 45, MCV 93, and platelet count of 232,000. His prothrombin time, INR and aPTT normal. D-dimer slightly elevated. Urinalysis was unremarkable. Toxic screen was essentially negative. His influenza A and B were negative. DISCHARGE MEDICATIONS: The patient was discharged home to continue on hydrocodone/APAP 5/325 one tablet every 6 hours, Tylenol 650 mg every 6 hours, aspirin 81 mg once a day, atorvastatin calcium 10 mg at bedtime, carboxymethylcellulose artificial tears 1 drop to both eyes daily, folic acid 1 mg daily, NovoLog insulin 18 units before meals and Lantus insulin 35 units at bedtime, metformin 500 mg 2 tablets daily and one tablet with supper, mirtazapine 30 mg at bedtime, tamsulosin for Flomax that he takes 0.8 mg at bedtime, and thiamine 500 mg once a day. FINAL DISCHARGE DIAGNOSES: Recurrent falls without obvious injury except abrasions on the left forehead and outer aspect of left knee, chest pain with mixed features. HIs troponin has peaked at 0.2. Hypertension, hyperlipidemia, type 2 diabetes mellitus, chronic low back pain due to severe degenerative changes involving both cervical and lumbar spine. MARIUM KAUR MD DR: [email or web address]/jero JOB#: [id number] / [id number]
== END 2019-06-28 13:30 | disposition home or self-care (01) ==
LOC: ER 23:26 → 1 SOUTH 06-27 00:45 → INTOOBSV 06-27 00:45
PROVIDERS: ADMIT Internal Medicine; ATTEND Internal Medicine
DX: S00.81XA Abrasion of other part of head, initial encounter (principal); R07.89 Other chest pain; D72.829 Elevated white blood cell count, unspecified; E11.9 Type 2 diabetes mellitus without complications; F43.10 Post-traumatic stress disorder, unspecified; E78.5 Hyperlipidemia, unspecified; G47.33 Obstructive sleep apnea (adult) (pediatric); G89.29 Other chronic pain; H93.19 Tinnitus, unspecified ear; I10 Essential (primary) hypertension; I25.10 Atherosclerotic heart disease of native coronary artery without angina pectoris; M15.9 Polyosteoarthritis, unspecified; M47.816 Spondylosis without myelopathy or radiculopathy, lumbar region; M48.061 Spinal stenosis, lumbar region without neurogenic claudication; M50.30 Other cervical disc degeneration, unspecified cervical region; N40.0 Benign prostatic hyperplasia without lower urinary tract symptoms; R29.6 Repeated falls; W19.XXXA Unspecified fall, initial encounter; Z82.3 Family history of stroke; Z82.49 Family history of ischemic heart disease and other diseases of the circulatory system; Z87.891 Personal history of nicotine dependence; Z98.41 Cataract extraction status, right eye; Z98.42 Cataract extraction status, left eye; R42 Dizziness and giddiness; R53.1 Weakness; R79.89 Other specified abnormal findings of blood chemistry; R74.8 Abnormal levels of other serum enzymes; Z90.49 Acquired absence of other specified parts of digestive tract; Y93.89 Activity, other specified; Y92.89 Other specified places as the place of occurrence of the external cause; Y99.8 Other external cause status
CPT/HCPCS: 36415; 70450; 71045; 72125; 72131; 72192; 80048; 80053; 80061; 80076; 80307; 81001; 82533; 82550; 82947; 83690; 83735; 83880; 84443; 84484; 85025; 85379; 85610; 85651; 85730; 86140; 87804; 93005; 93970; 96360; 96372; 97116; 97162; 97166; 97530; 99285; G0238; G0378; J2270; J7120; G0379